=== PATIENT | male | born 1975 | race Native Hawaiian/Other Pacific Islander ===

== ENCOUNTER 2025-04-15 11:53 | Emergency (ER) | payer BC, SELFPAY ==
[2025-04-15 12:04] VITALS: BP 120/86; PULSE 76; RESP 18; TEMP 37.2; O2SAT 97; BMI 39.5
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
== END 2025-04-15 12:52 | disposition home or self-care (01) ==
LOC: ED 12:40
PROVIDERS: Emergency Provider Emergency Medicine Emergency Medical Services
DX: M54.16 Radiculopathy, lumbar region (principal)
CPT/HCPCS: 96372; 99283; 99284; J2270